=== PATIENT | female | born 1965 | race Two or more races ===

== ENCOUNTER → 2017-03-14 | Day surgery (SDC) | payer BC ==
[~2017-03-14] VITALS: Ht 162.6 cm; Wt 96.1 kg
[~2017-03-14] MED LIST: BACTRIM DS1 TAB PO; LEVOTHROID (S125 MCG PO; LISINOPRIL20 MG PO; MYRBETRIQ25 MG PO; NORVASC10 MG PO; PRAVASTATIN SOD10 MG PO
--- NOTE | ~2017-03-14 | OR ---
PATIENT'S NAME: MALAIKA SMITH [facility] AGE: 51 Y [address] ROOM: [place] [id number] LOCATION: [facility] [place] ADMIT DATE: 03/14/2017 OR/Procedure Report DISCHARGE DATE: FAMILY PHYSICIAN: Bernardo Hollingsworth MD ATTENDING PHYSICIAN: MARISABEL DUNCAN SURGEON: Marisabel Duncan MD FIRER PORTABLE BOILER: None. DATE OF PROCEDURE: 03/14/2017 PREOPERATIVE DIAGNOSES: 1. Overactive bladder with urinary urgency, frequency, nocturia, and urge incontinence. 2. Dysuria. 3. Urinary retention. POSTOPERATIVE DIAGNOSES: 1. Overactive bladder with urinary urgency, frequency, nocturia, and urge incontinence. 2. Dysuria. 3. Urinary retention. 4. Urethral stenosis. OPERATIVE PROCEDURE: Cystourethroscopy with urethral dilation. INDICATIONS FOR PROCEDURE: The patient is a pleasant 51-year-old female, who reported difficulties with emptying her bladder shortly following vaginal hysterectomy and tension-free vaginal tape, mid urethral sling placement by Dr. Arvizu performed in [place]. The patient was recently found on cystoscopy to have urethral stenosis. The patient was explained the risks, benefits, indications, and alternatives to above procedure and wished proceed and consented freely. Of note, I did utilize the reamer hand in discussing the risks and benefits with the procedure. I also discussed that given her history of sling procedure that this may be causing her bladder outlet obstruction; and in order to get into her bladder, we may have to perform urethral dilation. We also discussed the possible risk of urethral erosion of the sling, particularly if it is too tight. The patient voiced understanding of these risks and still wished to proceed. DESCRIPTION OF OPERATION: The patient was brought back to the operating room, where she was placed on the OR table in a supine position. A surgical time- out was called where patient identification, surgical site, and procedure was then verified. We also did verify that the patient received an IV Levaquin antibiotic within an hour of beginning the procedure. The patient was then moved and placed in a low lithotomy position after undergoing successful administration of monitored anesthesia care. The patient's genital area was PATIENT'S NAME: MALAIKA SMITH [facility] AGE: 51 Y [address] ROOM: [place] [address] LOCATION: [facility] [place] ADMIT DATE: 03/14/2017 OR/Procedure Report DISCHARGE DATE: FAMILY PHYSICIAN: Bernardo Hollingsworth MD ATTENDING PHYSICIAN: MARISABEL DUNCAN then prepped and draped in the usual sterile fashion. I began by advancing a pediatric rigid cystoscope into the patient's urethra. I did visualize an area of urethral stenosis, which was approximately 5-Armenian to 8-Armenian in diameter. This area was located at her mid urethra and did appear to be somewhat concentric in nature consistent with a possible urethral stricture. I was then unable to advance the pediatric cystoscope and passed the area of the stenosis. I was able, however, to carefully advanced a Sensor guidewire across the area of stenosis and into her bladder under fluoroscopic imaging. At this point, I opted to proceed with urethral dilation using the S curve dilators and dilating sequentially up to 20-Armenian in caliber. After completion of the dilation, I then performed full pancystoscopy using the flexible cystoscope. Her bladder was negative for any bladder tumors, cellules, diverticula, or foreign bodies. Then, over the remaining wire, I advanced a 16-Armenian [place] tip Cordero catheter over the wire into the bladder easily and placed 10 mL of sterile water in the balloon and removed the wire leaving the catheter in place. The catheter was then placed to gravity drainage. The patient was then taken out of the lithotomy position where she was then awoken from monitored anesthesia care and transferred to recovery bed and transported to the recovery room in good condition. COMPLICATIONS: None. DRAINS: Indwelling 16-Armenian Cordero catheter to gravity drainage. SPECIMENS: None. ESTIMATED BLOOD LOSS: Minimal. FOLLOWUP PLAN: We will plan to have the patient return for a nurse visit for Cordero catheter removal on Friday, March 17, 2017. I will then plan to see her back for followup in [facility] in approximately four weeks to follow back up on her urinary symptoms, but also to consider repeat cystoscopy to make sure that she has not had any recurrence of this urethral stenosis. MARISABEL DUNCAN MD GP/modl /[id number] CC: Bernardo Hollingsworth MD d: 03/14/17 1357 t: 03/14/17 2043, OPERATIVE SUMMARY
[2017-03-14 10:01] LABS: BASOPHIL % 0.4 %; EOSINOPHIL # 0.1 K/uL (0.0-0.5); EOSINOPHIL % 1.9 %; HEMATOCRIT 39.1 % (33.0-46.0); HEMOGLOBIN 13.5 g/dL (10.0-15.0); IMMATURE GRANULOCYTE % 0.2 %; LYMPHOCYTE # 1.7 K/uL (0.8-4.0); LYMPHOCYTE % 32.1 %; MCH 31.1 pg (27.0-34.0); MCHC 34.5 gm/dL (32.0-36.5); MCV 90.1 fl (83.0-98.0); MONOCYTE # 0.4 K/uL (0.0-1.0); MONOCYTE % 8.3 %; MPV 11.2 fl (9.4-12.4); NEUTROPHIL % 57.1 %; NRBC % 0 /100WBC (0-0.00); PLATELET COUNT 236 K/uL (150-450); RBC 4.34 M/uL (3.50-5.50); RDW-CV 12.9 % (11.9-14.6); WBC 5.3 K/uL (4.0-11.0)
[2017-03-14 10:20] LABS: ALBUMIN 3.4 gm/dL (3.5-5.0); ALK PHOS 75 IU/L (33-138); ALT 32 IU/L (12-78); AST 20 IU/L (10-40); BLOOD UREA NITROGEN 17 mg/dL (6-24); CALCIUM 8.8 mg/dL (8.5-10.5); CHLORIDE 108 mMol/L (96-110); CO2 27 mMol/L (22-32); CREATININE 0.5 mg/dL (0.5-1.1); ESTIMATED GFR (MDRD EQUATION) > 60; SODIUM 142 mMol/L (135-145); TOTAL BILIRUBIN 0.4 mg/dL (0.0-1.5); TOTAL PROTEIN 7.1 g/dL (6.0-8.4)
== END | disposition disaster alternative care site (69) ==
LOC: GPOC 03-12 10:00 → GSDC 09:17
PROVIDERS: Urology
PROC: 0T7D8ZZ Dilation of Urethra, Via Natural or Artificial Opening Endoscopic (ICD-10-PCS; principal; 2017-03-14)
DX: N35.9 Urethral stricture, unspecified (principal); R35.1 Nocturia; R30.0 Dysuria; R33.9 Retention of urine, unspecified; N39.41 Urge incontinence; R35.0 Frequency of micturition; I10 Essential (primary) hypertension; E78.00 Pure hypercholesterolemia, unspecified; E03.9 Hypothyroidism, unspecified; E78.5 Hyperlipidemia, unspecified; Z90.710 Acquired absence of both cervix and uterus; Z98.890 Other specified postprocedural states; Z79.899 Other long term (current) drug therapy
CPT/HCPCS: J1956; J2001; J7030